=== PATIENT | male | born 1955 | race Caucasian/White ===

== ENCOUNTER 2021-08-17 08:44 | Emergency (ER) | payer OTHER ==
[~2021-08-17] VITALS: Ht 154.9 cm; Wt 68.0 kg
[2021-08-17 08:49] VITALS: BP 127/89
== END 2021-08-17 09:45 | disposition home or self-care (01) ==
LOC: ER 09:08
DX: S61.213A Laceration without foreign body of left middle finger without damage to nail, initial encounter (principal); W25.XXXA Contact with sharp glass, initial encounter; Y93.89 Activity, other specified; Y92.89 Other specified places as the place of occurrence of the external cause
CPT/HCPCS: 12001; 99282